=== PATIENT | female | born 1980 | race Caucasian/White ===

== ENCOUNTER 2022-06-30 16:26 | Emergency (ER) | payer BC ==
[2022-06-30 17:32] VITALS: BP 124/85; PULSE 91; RESP 18; TEMP 98.3
--- NOTE | 2022-06-30 23:08 | ED ---
General Adult HPI - General Chief complaint: Vaginal Bleeding Stated complaint: 8 weeks preg,Bleeding Time Seen by Provider: 06/30/22 22:20 Source: patient, RN notes reviewed, old records reviewed Mode of arrival: ambulatory - History of Present Illness Initial comments: Patient is a 42-year-old female with past medical history remarkable for unspecified clotting disorders as well as multiple miscarriages, who recently gave 9 months ago and is currently approximately 16 weeks presents emergency Department complaining of vaginal bleeding. States she has been having darker discharge over the last 1-2 weeks. Has been seeing OB outpatient, and initially no heart rate was seen on an ultrasound with her initial OB 2 weeks ago. They recommended terminating the . She did seek a second opinion, and heart rate was seen on this ultrasound approximately 1 week ago. She states she has been having her typical discharge since that time, however has noticed that she is spotting more frequently as well as having abdominal cramping. Denies any shortness of breath, chest pain. Denies any abdominal pain, nausea, vomiting. Denies any headaches or weakness. She is concerned regarding her . Patient is uncertain if she is having a mi scarriage, is uncertain if she is having a demise. Does have home, as ultrasound last week did show signs of a heartbeat. This ultrasound was done at an outside facility and we do not have access to the results. Presents for further evaluation at this time.Denies any dysuria or hematuria.Patient quantifies the bleeding as enough to fill the small pad. Seems to be more spotting in nature. - Related Data Home Medications Medication Instructions Recorded Confirmed Dextroamphetamine/Amphetamine 10 mg PO DAILY 03/14/14 05/30/15 [Adderall] Previous Rx's Medication Instructions Recorded HYDROcodone/APAP 5-325MG [[place] 1 each PO Q6HR PRN #20 tab 05/30/15 5-325] Ibuprofen [Motrin] 600 mg PO Q6HR PRN #30 tab 05/30/15 Orphenadrine [Norflex] 100 mg PO Q12H PRN #6 tablet.er 05/30/15 Allergies Allergy/AdvReac Type Severity Reaction Status Date / Time bupropion [From Wellbutrin] Allergy Rash/Hives Verified 06/30/22 17:32 nitrofurantoin Allergy Anaphylaxis Verified 06/30/22 17:32 Review of Systems ROS Statement: Those systems with pertinent positive or pertinent negative responses have been documented in the HPI. Review of Systems: CONST: Denies fever EYES: Denies blurry vision ENT: Denies nasal congestion C/V: Denies Chest pain RESP: Denies shortness of breath GI: Denies abdominal pain : Endorses vaginal bleeding. SKIN: Denies rash. MSK: Denies joint pain. NEURO: Denies headache ROS Other: All systems not noted in ROS Statement are negative. Past Medical History Past Medical History: Blood Disorder History of Any Multi-Drug Resistant Organisms: None Reported Additional Past Surgical History / Comment(s): lithotripsy Past Psychological History: No Psychological Hx Reported Past Alcohol Use History: Occasional Past Drug Use History: None Reported General Exam - General Exam Comments Initial Comments: General: Appears in no acute distress. HEAD: Normal with no signs of head trauma. EYES: PERRLA, EOMI, conjunctiva normal, no discharge. ENT: Hearing grossly intact, normal oropharynx. RESPIRATORY: Clear breath sounds bilaterally. No wheezes, rales, or rhonchi. C/V: Regular rate and rhythm. S1 and S2 auscultated, no edema, peripheral pulses 2+ and intact throughout ABD: Abd is soft, nontender, nondistended EXT: Normal range of motion, no obvious deformity SKIN: No rashes or lesions observed on exposed skin. NEURO: Alert and Oriented 4. Course Vital Signs 06/30/22 17:28 Temperature 98.3 F Pulse Rate 91 Respiratory 18 Rate Blood Pressure 124/85 O2 Sat by Pulse 97 Oximetry Medical Decision Making - Medical Decision Making Based on the patient's presentation and physical exam, I am concerned for threatened miscarriage. It does seem that she is been dealing with this for the last 2 weeks. Has noticed more spotting. We will obtain laboratory studies, as well as an ultrasound. She was in agreement this plan. His no signs or symptoms of the left anemia. Vital signs are within acceptable limits. Patient does have a history of multiple miscarriages. Patient's laboratory studies are remarkable for mild leukocytosis of 11.3 which is likely reactive. Quantitative beta hCG is 8200. Urinalysis is unremarkable. There is normal blood. The findings of infection. Coags are within normal limits. Patient's OB ultrasound reveals findings suggestive of early intrauterine demise at 6 weeks gestation. No heart tones detected. Recommend follow-up ultrasound for confirmation within the next 7 days. I discussed the findings with the patient. She expressed understanding. This is similar to ultrasound results obtained 2 weeks ago. Last week when she felt well, there were heart tones. We did discuss at length that she is at a minimum experiencing a threatened miscarriage, but it does appear that she is having intrauterine demise. I did offer her OB follow-up. She is requesting to leave, and will follow up with her OB outpatient. I believe this is reasonable. She will discuss taking possible medications with her PCP as well as [facility]. She was in agreement this plan. She will continue taking vitamins until that time. I will provide her with our follow-up with [facility] which she accepted. Patient will be discharged home at this time. Strict return precautions were discussed. Patient understands that she is likely experiencing another miscarriage with a demise. She states she was given this di agnosis 2 weeks ago and last week had some hope based on the repeat ultrasound. Wishes to obtain repeat ultrasound imaging before making any further decisions within the next week. She will discuss findings with her [facility]. I instructed the patient to follow up with their PCP in the next 1-3 days. I explained that the patient should return to the emergency department if they experience any worsening symptoms. Strict return precautions were discussed with the patient. The patient expressed understanding of these instructions. I answered all questions that the patient had. The patient was discharged home in good condition with their prescriptions and follow up information. - Lab Data Result diagrams: 06/30/22 22:53 06/30/22 22:53 Lab Results 06/30/22 06/30/22 06/30/22 Range/Units 22:49 22:52 22:53 WBC 11.3 H (3.8-10.6) k/uL RBC 5.24 (3.80-5.40) m/uL Hgb 15.3 (11.4-16.0) gm/dL Hct 44.8 (34.0-46.0) % MCV 85.5 (80.0-100.0) fL MCH 29.2 (25.0-35.0) pg MCHC 34.1 (31.0-37.0) g/dL RDW 12.1 (11.5-15.5) % Plt Count 332 (150-450) k/uL MPV 6.7 Neutrophils % 58 % Lymphocytes % 33 % Monocytes % 5 % Eosinophils % 2 % Basophils % 1 % Neutrophils # 6.6 (1.3-7.7) k/uL Lymphocytes # 3.7 (1.0-4.8) k/uL Monocytes # 0.6 (0-1.0) k/uL Eosinophils # 0.2 (0-0.7) k/uL Basophils # 0.1 (0-0.2) k/uL PT (9.0-12.0) sec INR (<1.2) APTT (22.0-30.0) sec Sodium (137-145) mmol/L Potassium (3.5-5.1) mmol/L Chloride (98-107) mmol/L Carbon Dioxide (22-30) mmol/L Anion Gap mmol/L BUN (7-17) mg/dL Creatinine (0.52-1.04) mg/dL Est GFR (CKD-EPI)AfAm (>60 ml/min/1.73 sqM) Est GFR (CKD-EPI)NonAf (>60 ml/min/1.73 sqM) Glucose (74-99) mg/dL Calcium (8.4-10.2) mg/dL HCG, Qual HCG, Quant 8225.6 mIU/mL Urine Color Urine Appearance (Clear) Urine pH (5.0-8.0) Ur Specific [place] (1.001-1.035) Urine Protein (Negative) Urine Glucose (UA) (Negative) Urine Ketones (Negative) Urine Blood (Negative) Urine Nitrite (Negative) Urine Bilirubin (Negative) Urine Urobilinogen (<2.0) mg/dL Ur Leukocyte Esterase (Negative) Urine RBC (0-5) /hpf Urine WBC (0-5) /hpf Ur Squamous Epith Cells (0-4) /hpf Amorphous Sediment (None) /hpf Urine Bacteria (None) /hpf Urine Mucus (None) /hpf Blood Type O Positive Blood Type Recheck O Pos Bld Type Recheck Status No Antibody Screen NEGATIVE Spec Expiration Date 07/03/2022 - 234806/30/22 06/30/22 06/30/22 Range/Units 22:53 22:53 23:06 WBC (3.8-10.6) k/uL RBC (3.80-5.40) m/uL Hgb (11.4-16.0) gm/dL Hct (34.0-46.0) % MCV (80.0-100.0) fL MCH (25.0-35.0) pg MCHC (31.0-37.0) g/dL RDW (11.5-15.5) % Plt Count (150-450) k/uL MPV Neutrophils % % Lymphocytes % % Monocytes % % Eosinophils % % Basophils % % Neutrophils # (1.3-7.7) k/uL Lymphocytes # (1.0-4.8) k/uL Monocytes # (0-1.0) k/uL Eosinophils # (0-0.7) k/uL Basophils # (0-0.2) k/uL PT 10.1 (9.0-12.0) sec INR 0.9 (<1.2) APTT 26.9 (22.0-30.0) sec Sodium 138 (137-145) mmol/L Potassium 3.9 (3.5-5.1) mmol/L Chloride 103 (98-107) mmol/L Carbon Dioxide 21 L (22-30) mmol/L Anion Gap 14 mmol/L BUN 14 (7-17) mg/dL Creatinine 0.65 (0.52-1.04) mg/dL Est GFR (CKD-EPI)AfAm >90 (>60 ml/min/1.73 sqM) Est GFR (CKD-EPI)NonAf >90 (>60 ml/min/1.73 sqM) Glucose 96 (74-99) mg/dL Calcium 9.9 (8.4-10.2) mg/dL HCG, Qual Detected HCG, Quant mIU/mL Urine Color Light Yellow Urine Appearance Cloudy H (Clear) Urine pH 5.5 (5.0-8.0) Ur Specific [place] 1.010 (1.001-1.035) Urine Protein Negative (Negative) Urine Glucose (UA) Negative (Negative) Urine Ketones Negative (Negative) Urine Blood Moderate H (Negative) Urine Nitrite Negative (Negative) Urine Bilirubin Negative (Negative) Urine Urobilinogen <2.0 (<2.0) mg/dL Ur Leukocyte Esterase Trace H (Negative) Urine RBC 2 (0-5) /hpf Urine WBC 3 (0-5) /hpf Ur Squamous Epith Cells 2 (0-4) /hpf Amorphous Sediment Rare H (None) /hpf Urine Bacteria Moderate H (None) /hpf Urine Mucus Rare H (None) /hpf Blood Type Blood Type Recheck Bld Type Recheck Status Antibody Screen Spec Expiration Date Disposition Clinical Impression: Menorrhagia Narrative: demise versus threatened miscarriage Disposition: HOME SELF-CARE Condition: Good Instructions (If sedation given, give patient instructions): Threatened Miscarriage (ED) Additional Instructions: Follow up with your OBGYN in the next 7 days for repeat Ultrasound and further evaluation of the viability of this . Return to ED if worsening pain, bleeding, or other concerning symptoms. Your ultrasound today is suggestive of intrauterine demise with no heart rate seen. Is patient prescribed a controlled substance at d/c from ED?: No Referrals: Carlton Knowles MD [Primary Care Provider] - 1-2 days Dread Archuleta MD [STAFF PHYSICIAN] - 1-2 days Time of Disposition: 00:20
[2022-06-30 23:09] LABS: Basophils # (A) 0.1 k/uL (0-0.2); Basophils % (A) 1 %; Eosinophils # (A) 0.2 k/uL (0-0.7); Eosinophils % (A) 2 %; HCT 44.8 % (34.0-46.0); HGB 15.3 gm/dL (11.4-16.0); Lymphocytes # (A) 3.7 k/uL (1.0-4.8); Lymphocytes % (A) 33 %; MCH 29.2 pg (25.0-35.0); MCHC 34.1 g/dL (31.0-37.0); MCV 85.5 fL (80.0-100.0); Mean Platelet Volume 6.7; Monocytes # (A) 0.6 k/uL (0-1.0); Monocytes % (A) 5 %; Neutrophils # (A) 6.6 k/uL (1.3-7.7); Neutrophils % (A) 58 %; Platelet Count 332 k/uL (150-450); RBC 5.24 m/uL (3.80-5.40); RDW 12.1 % (11.5-15.5); WBC 11.3 k/uL (3.8-10.6)
[2022-06-30 23:16] LABS: INR 0.9 (<1.2); Partial Thromboplastin Time 26.9 sec (22.0-30.0); Prothrombin Time 10.1 sec (9.0-12.0)
[2022-06-30 23:20] LABS: African American GFR (CKD) >90 (>60 ml/min/1.73 sqM); Anion Gap 14 mmol/L; Blood Urea Nitrogen 14 mg/dL (7-17); Calcium 9.9 mg/dL (8.4-10.2); Carbon Dioxide 21 mmol/L (22-30); Chloride 103 mmol/L (98-107); Glucose 96 mg/dL (74-99); Non-African American GFR(CKD) >90 (>60 ml/min/1.73 sqM); Potassium 3.9 mmol/L (3.5-5.1); Sodium 138 mmol/L (137-145)
[2022-06-30 23:23] LABS: HCG,Qualitative Serum Detected
--- NOTE | 2022-06-30 23:34 | US ---
EXAMINATION TYPE: Transabdominal DATE OF EXAM: 06/30/2022 11:28 PM COMPARISON: NONE CLINICAL HISTORY: vaginal bleeding, 6-7w . vaginal bleeding x 1 day. Patient states she coul d be anywhere from 7-9 weeks. . EXAM PERFORMED: Transvaginal (TV) and Transabdominal (TA) EXAM MEASUREMENTS: GESTATIONAL AGE / DATING Physician Established: Not yet established Dates by LMP: 04/23/22 (9 weeks/5 days) EDC: 01/28/23 Dates by First Scan: No previous this is first scan Dates by Current Scan for: (6 weeks/0 days) EDC: 02/23/23 MATERNAL ANATOMY Uterus: 8.5 x 6.3 x 4.6 cm. Hypoechoic area seen in fundus measuring 1.4 x 0.9 x 0.7cm Right Ovary: 3.8 x 2.6 x 2.5 cm Left Ovary: 4.5 x 4.3 x 2.3cm Post CDS / Adnexa: WNL Presence of free fluid: No Presence of corpus luteal cyst: Complex cyst seen in lt ovary measuring 3.3 x 3.2 x 2.0cm Presence of subchorionic bleed: No GESTATION / SURVEY CRL: 0.34 (6 weeks/0 days) Yolk Sac (normal less than 6mm): 3.5mm Heart Rate: Not detected IUP: ? early pg vs demise Date of LMP: 04/23/22 Beta HcG (if available): Pending pole visualized measuring 6 weeks 0 days. No heart tones detected. Early Pg vs leonard se. IMPRESSION: The findings are suggestive of early intrauterine demise at 6 weeks gestation. Follow-up exam r ecommended for confirmation in 7 days. No evidence of ectopic .
[2022-07-01] LABS: Amorphous Sediment,Urine Rare /hpf; Appearance,Urine Cloudy (Clear); Bacteria,Urine Moderate /hpf; Bilirubin,Urine Negative (Negative); Blood,Urine Moderate (Negative); Color,Urine Light Yellow; Glucose,Urine (UA) Negative (Negative); Ketones,Urine Negative (Negative); Leukocyte Esterase,Urine Trace (Negative); Mucus,Urine Rare /hpf; Nitrite,Urine Negative (Negative); PH, Urine 5.5 (5.0-8.0); Protein,Urine Negative (Negative); RBC,Urine 2 /hpf (0-5); Squamous Epithelial Cell,Urine 2 /hpf (0-4); Urobilinogen,Urine <2.0 mg/dL (<2.0); WBC,Urine 3 /hpf (0-5)
== END 2022-07-01 01:02 | disposition home or self-care (01) ==
LOC: EC 16:26
DX: O20.8 Other hemorrhage in early pregnancy (principal); N92.0 Excessive and frequent menstruation with regular cycle; Z3A.01 Less than 8 weeks gestation of pregnancy
CPT/HCPCS: 36415; 76801; 76817; 80048; 81001; 84702; 84703; 85025; 85610; 85730; 86850; 86900; 86901; 99284